=== PATIENT | male | born 1970 | race Two or more races ===

== ENCOUNTER 2016-08-05 18:21 | Emergency (ER) | payer OTHER ==
[~2016-08-05] VITALS: Ht 170.2 cm; Wt 92.5 kg
[2016-08-05 18:40] VITALS: BP 130/78
[2016-08-05] MEDS ORDERED: CYCLOBENZAPRINE10 MG ORAL ×2 (18:54→18:58)
[2016-08-05] MEDS ORDERED: IBUPROFEN600 MG ORAL ×2 (18:54→18:58)
[2016-08-05] MEDS ORDERED: Ketorolac 30mg Inj IM ONE (19:00)
[2016-08-05 19:03] VITALS: BP 130/78
--- NOTE | 2016-08-05 20:08 | Emergency Room Report ---
History of Present Illness General Chief Complaint: Back Injury Source: Patient Present Illness HPI The patient is a 45-year-old male presenting with lower back pain which occurred today during work. The patient states that he was lifting a heavy object with the partner, twisted, and felt pain in his lower back. The patient states he continued to work after the injury and the pain kept increasing. The patient now states the pain is a 7/10 dull ache localized to the lower back and is worse with movement. The patient denies prior injury of the back. Patient denies numbness or tingling of the legs. Patient denies any other symptoms. Allergies: Coded Allergies: No Known Allergies (Unverified , 08/05/16) Patient History Past Medical History: see triage record Pertinent Family History: none Reviewed Nursing Documentation: PMH: Agreed, PSxH: Agreed Nursing Documentation-PMH Past Medical History: No Stated History Review of Systems All Other Systems: negative except mentioned in HPI Physical Exam Vital Signs Date Time Temp Pulse Resp B/P Pulse Ox O2 Delivery O2 Flow Rate FiO2 08/05/16 18:36 97.9 78 18 130/78 97 Room Air Sp02 EP Interpretation: reviewed, normal General Appearance: no apparent distress, alert, GCS 15, non-toxic Head: normocephalic, atraumatic Eyes: bilateral eye PERRL, bilateral eye normal inspection ENT: hearing grossly normal, normal pharynx, no angioedema, normal voice Neck: full range of motion, supple/symm/no masses Respiratory: chest non-tender, lungs clear, normal breath sounds, speaking full sentences Cardiovascular #1: regular rate, rhythm, no edema Genitourinary: normal inspection, no CVA tenderness Musculoskeletal: digits/nails normal, gait/station normal, normal range of motion, no calf tenderness, tender - TTP over bilat lumbar paraspinous muscles Neurologic: alert, oriented x3, responsive, motor strength/tone normal, sensory intact, normal gait, speech normal Psychiatric: judgement/insight normal, memory normal, mood/affect normal, no suicidal/homicidal ideation Reflexes: 3+ bicep (R), 3+ bicep (L), 3+ tricep (R), 3+ tricep (L), 3+ knee (R) , 3+ knee (L) Skin: normal color, no rash, warm/dry, well hydrated Medical Decision Making PA Attestation Dr. Carlisle is my supervising physician. Patient management was discussed with my supervising physician Diagnostic Impression: Primary Impression: Lumbar strain ER Course The patient is a 45-year-old male presenting with lower back pain which occurred at work Ddx considered include but not limited to sprain/strain, fracture, contusion Physical exam: Vitals within normal limits. No apparent distress. There is tenderness to palpation over bilateral lumbar paraspinous muscles. No midline tenderness. No step-offs. Full active range of motion. Normal gait. The patient is given Toradol for pain with good relief. The patient be discharged home with a prescription for Motrin and Flexeril. The patient is given time off from work and will followup with workers compensation Last Vital Signs Date Time Temp Pulse Resp B/P Pulse Ox O2 Delivery O2 Flow Rate FiO2 08/05/16 19:03 97.8 18 130/78 97 Room Air 08/05/16 18:36 78 Status: improved Disposition: HOME, SELF-CARE Condition: Improved Scripts Cyclobenzaprine Hcl* (FLEXERIL*) 10 Mg Tablet 10 MG ORAL THREE TIMES A DAY, #15 TAB Prov: LESA BLEVINS 08/05/16 Ibuprofen* (MOTRIN*) 600 Mg Tablet 600 MG ORAL Q8H Y for For Pain, #30 TAB 0 Refills Prov: LESA BLEVINS 08/05/16 Referrals: NOT CHOSEN IPA/,REFERRING (PCP) Patient Instructions: Back Pain, Adult, Muscle Strain Additional Instructions: I discussed my findings with the patient. All questions and concerns have been answered. Treatment and medication compliance have been addressed. I advised the patient that they need to follow up with PMD in 3-5 days. Return to ED if pain remains or worsens, numbness or tingling occurs, new rash is noticed, fever is noticed, or if needed for any reason. Patient verbalized understanding of discharge instructions. LESA BLEVINS Aug 05, 2016 20:08
== END 2016-08-05 19:12 | disposition home or self-care (01) ==
LOC: EMR 18:56
DX: S39.012A Strain of muscle, fascia and tendon of lower back, initial encounter (principal); X50.0XXA Overexertion from strenuous movement or load, initial encounter; Y92.69 Other specified industrial and construction area as the place of occurrence of the external cause; Y99.0 Civilian activity done for income or pay
CPT/HCPCS: 96372; 99284; J1885